=== PATIENT | male | born 1955 | race Caucasian/White ===

== ENCOUNTER → 2017-06-14 | Outpatient (REF) | payer OTHER ==
[2017-06-14 14:37] LABS: ALBUMIN 3.8 GM/DL (3.2-5.2); ALBUMIN/GLOBULIN RATIO 1.23 (1.00-1.93); ALKALINE PHOSPHATASE 55 U/L (45-117); ALT/SGPT 19 U/L (12-78); ANION GAP 6 MEQ/L (8-16); AST/SGOT 11 U/L (15-37); BILIRUBIN,TOTAL 0.3 MG/DL (0.2-1.0); BLOOD UREA NITROGEN 13 MG/DL (7-18); CARBON DIOXIDE LEVEL 28 MEQ/L (21-32); CHLORIDE LEVEL 108 MEQ/L (98-107); GLOMERULAR FILTRATION RATE > 60.0 (>49); GLUCOSE, FASTING 72 MG/DL (80-110); POTASSIUM SERUM 4.2 MEQ/L (3.5-5.1); SODIUM LEVEL 142 MEQ/L (136-145); TOTAL PROTEIN 6.9 GM/DL (6.4-8.2)
[2017-06-14 14:46] LABS: BASO % 0.6 % (0.0-1.0); EOS # 0.2 K/mm3 (0.0-0.50); EOS % 2.2 % (0.0-3.0); LARGE UNSTAINED CELL # 0.1 K/mm3 (0.0-0.4); LARGE UNSTAINED CELL % 1.7 % (0.0-4.0); LYMPH # 2.4 K/mm3 (1.5-4.5); MEAN CORPUSCULAR HEMOGLOBIN 32.1 pg (27.0-33.0); MEAN CORPUSCULAR HGB CONC 34.3 g/dl (32.0-36.5); MEAN CORPUSCULAR VOLUME 93.6 fl (80.0-96.0); MONO # 0.6 K/mm3 (0.0-0.8); MONO % 6.9 % (0.0-5.0); NEUTROPHILS # 5.2 K/mm3 (1.8-7.7); NEUTROPHILS % 61.6 % (36.0-66.0); PLATELET COUNT, AUTOMATED 288 k/mm3 (150-450); RED CELL DISTRIBUTION WIDTH 12.5 % (11.5-14.5); WHITE BLOOD COUNT 8.4 K/mm3 (4.0-10.0)
== END ==
LOC: M LABNEURO 13:47
PROVIDERS: ATTEND Psychiatry & Neurology Neurology
DX: G44.009 Cluster headache syndrome, unspecified, not intractable (principal)

== ENCOUNTER → 2018-01-17 | Outpatient (REF) | payer OTHER ==
[2018-01-17 14:17] LABS: BASO # 0.1 10^3/uL (0.0-0.2); BASO % 0.5 % (0.0-1.0); EOS # 0.4 10^3/uL (0.0-0.50); EOS % 3.8 % (0.0-3.0); HEMATOCRIT 40.8 % (42.0-52.0); HEMOGLOBIN 13.4 g/dl (14.0-18.0); IMMATURE GRANULOCYTE % 0.3 % (0-3.0); LYMPH # 2.2 10^3/uL (1.5-4.5); LYMPH % 22.6 % (24.0-44.0); MEAN CORPUSCULAR HGB CONC 32.8 g/dl (32.0-36.5); MEAN CORPUSCULAR VOLUME 94.4 fl (80.0-96.0); MONO % 9.9 % (0.0-5.0); NEUTROPHILS # 6.2 10^3/uL (1.8-7.7); NEUTROPHILS % 62.9 % (36.0-66.0); PLATELET COUNT, AUTOMATED 304 10^3/uL (150-450); RED BLOOD COUNT 4.32 10^6/uL (4.30-6.10); RED CELL DISTRIBUTION WIDTH 13.3 % (11.5-14.5); WHITE BLOOD COUNT 9.9 10^3/uL (4.0-10.0)
[2018-01-17 14:50] LABS: ALBUMIN 3.7 GM/DL (3.2-5.2); ALBUMIN/GLOBULIN RATIO 1.23 (1.00-1.93); ALKALINE PHOSPHATASE 59 U/L (45-117); ALT/SGPT 19 U/L (12-78); ANION GAP 6 MEQ/L (8-16); AST/SGOT 11 U/L (7-37); BILIRUBIN,TOTAL 0.2 MG/DL (0.2-1.0); BLOOD UREA NITROGEN 13 MG/DL (7-18); CALCIUM LEVEL 8.5 MG/DL (8.8-10.2); CARBON DIOXIDE LEVEL 30 MEQ/L (21-32); CHLORIDE LEVEL 106 MEQ/L (98-107); CREATININE FOR GFR 0.69 MG/DL (0.70-1.30); GLOMERULAR FILTRATION RATE > 60.0 (>49); GLUCOSE, FASTING 85 MG/DL (70-100); POTASSIUM SERUM 4.2 MEQ/L (3.5-5.1); SODIUM LEVEL 142 MEQ/L (136-145); TOTAL PROTEIN 6.7 GM/DL (6.4-8.2); VALPROIC ACID (DEPAKOTE) 37.4 UG/ML (50.0-100.0)
== END ==
LOC: M LABNEURO 12:55
DX: G44.009 Cluster headache syndrome, unspecified, not intractable (principal)
CPT/HCPCS: 80164

== ENCOUNTER → 2018-06-07 | Outpatient (CLI) | payer OTHER | LOC: M RAD 12:03 | DX: J32.0 Chronic maxillary sinusitis (principal) | CPT/HCPCS: 70486 ==

== ENCOUNTER 2018-09-11 06:20 | Day surgery (SDC) | payer OTHER ==
[2018-09-11] MEDS ORDERED: LR 1,000 ML IV ×3 (07:00→10:45)
[2018-09-11] MEDS ORDERED: fentaNYL 250 MCG/5 ML INJECTION (J3010) As Ordered (07:52)
[2018-09-11] MEDS ORDERED: MIDAZOLAM INJ 2 MG/2 ML VIAL (J2250) As Ordered (07:52)
[2018-09-11] MEDS ORDERED: LIDOCAINE 2% INJ 100 MG/5 ML SDV (FOR ANES.) As Ordered (07:52)
[2018-09-11] MEDS ORDERED: dexameTHASONE 4 MG/ML 1ML VIAL (J1100) As Ordered ×2 (07:52→08:57)
[2018-09-11] MEDS ORDERED: PROPOFOL 200 MG/20 ML VIAL As Ordered (07:52)
[2018-09-11] MEDS ORDERED: ROCURONIUM BROMIDE 50 MG/5 ML VIAL As Ordered (07:52)
[2018-09-11] MEDS ORDERED: PHENYLephrine HCL 500 MCG/5 ML (100MCG/ML) SYRINGE (J2370) As Ordered (07:53)
[2018-09-11] MEDS: dexameTHASONE 4 MG/ML 1ML VIAL (J1100) IV (08:00)
[2018-09-11] MEDS ORDERED: LABETALOL HCL 100 MG/20 ML VIAL As Ordered (08:52)
[2018-09-11] MEDS: EPINEPHrine 1MG/ML INJ 30ML MD-VIAL As Ordered ×2 (08:54)
[2018-09-11] MEDS: METHYLENE BLUE 0.5% (5MG/ML) 10 ML AMP (PROVAYBLUE)(Q9968 PER 1MG) As Ordered (08:55)
[2018-09-11] MEDS ORDERED: ePHEDrine SULFATE 25 MG/5 ML(5MG/ML) SYRINGE As Ordered (09:57)
[2018-09-11] MEDS: LIDOCAINE W/EPINEPHRINE 1% 20ML VIAL As Ordered (10:00)
[2018-09-11] MEDS ORDERED: ONDANSETRON 4MG/2ML VIAL (J2405) As Ordered (10:05)
[2018-09-11] MEDS ORDERED: SUGAMMADEX SODIUM 500 MG/5 ML VIAL (BRIDION) As Ordered (10:06)
[2018-09-11] MEDS: SODIUM CHLORIDE 0.9% NASAL GEL 15GM (AYR) As Ordered (10:29)
[2018-09-11] MEDS: NORCO, ANEXSIA 5/325MG TABLET (HYDROcodone/ACETAMINOPHEN) PO ×2 (10:45→11:15)
[2018-09-11] MEDS ORDERED: ONDANSETRON 4MG/2ML VIAL (J2405) IV (10:45)
[2018-09-11] MEDS: fentaNYL 100 MCG/2 ML INJECTION (J3010) IV ×4 (10:48→11:03)
[2018-09-11] MEDS: METOCLOPRAMIDE INJ 10MG/2ML VIAL (J2765) IV (11:50)
[2018-09-11] MEDS ORDERED: METOCLOPRAMIDE INJ 10MG/2ML VIAL (J2765) As Ordered (11:51)
== END 2018-09-11 13:30 | disposition home or self-care (01) ==
LOC: M SDC 06:20
DX: J31.0 Chronic rhinitis (principal); J32.9 Chronic sinusitis, unspecified; E78.5 Hyperlipidemia, unspecified; R23.3 Spontaneous ecchymoses; G44.009 Cluster headache syndrome, unspecified, not intractable; M12.9 Arthropathy, unspecified; G47.9 Sleep disorder, unspecified; R06.83 Snoring; Z79.899 Other long term (current) drug therapy; Z87.81 Personal history of (healed) traumatic fracture
CPT/HCPCS: 31255

== ENCOUNTER → 2019-01-27 | Outpatient (REF) | payer OTHER ==
[~2019-01-27] MED LIST: BUTACAP78 PO; DEPA250T32 PO; MULT1CHW26 PO; SIMV40TA2 PO; VIAG100T PO
[2019-01-27 12:40] LABS: BASO % 0.3 % (0.0-1.0); EOS # 0.4 10^3/uL (0.0-0.50); EOS % 3.4 % (0.0-3.0); HEMATOCRIT 42.4 % (42.0-52.0); HEMOGLOBIN 14.4 g/dl (13.5-17.5); LYMPH # 2.9 10^3/uL (1.5-4.5); LYMPH % 24.3 % (24.0-44.0); MEAN CORPUSCULAR HEMOGLOBIN 31.2 pg (27.0-33.0); MONO % 8.8 % (0.0-5.0); NEUTROPHILS # 7.4 10^3/uL (1.8-7.7); NEUTROPHILS % 62.9 % (36.0-66.0); PLATELET COUNT, AUTOMATED 313 10^3/uL (150-450); RED BLOOD COUNT 4.61 10^6/uL (4.30-6.10); WHITE BLOOD COUNT 11.8 10^3/uL (4.0-10.0)
[2019-01-27 13:36] LABS: ALT/SGPT 26 U/L (12-78); BILIRUBIN,TOTAL 0.4 MG/DL (0.2-1.0); BLOOD UREA NITROGEN 13 MG/DL (7-18); CALCIUM LEVEL 8.7 MG/DL (8.8-10.2); CARBON DIOXIDE LEVEL 26 MEQ/L (21-32); CHLORIDE LEVEL 107 MEQ/L (98-107); CREATININE FOR GFR 0.66 MG/DL (0.70-1.30); GLOMERULAR FILTRATION RATE > 60.0 (>49); GLUCOSE, FASTING 87 MG/DL (70-100); POTASSIUM SERUM 4.4 MEQ/L (3.5-5.1); SODIUM LEVEL 139 MEQ/L (136-145); TOTAL PROTEIN 7.2 GM/DL (6.4-8.2); VALPROIC ACID (DEPAKOTE) 35.2 UG/ML (50.0-100.0)
== END ==
LOC: M LABNEURO 10:50
PROVIDERS: ATTEND Psychiatry & Neurology Neurology
DX: G44.009 Cluster headache syndrome, unspecified, not intractable (principal)

== ENCOUNTER → 2019-02-05 | Outpatient (REF) | payer OTHER | LOC: M LAB REF 10:42 | PROVIDERS: ATTEND Otolaryngology | DX: K13.79 Other lesions of oral mucosa (principal) ==

== ENCOUNTER → 2019-06-27 | Outpatient (REF) | payer OTHER ==
[2019-06-27 12:20] LABS: ALBUMIN 4.4 GM/DL (3.2-5.2); ALT/SGPT 50 U/L (12-78); BILIRUBIN,TOTAL 0.2 MG/DL (0.2-1.0); BLOOD UREA NITROGEN 18 MG/DL (7-18); CARBON DIOXIDE LEVEL 26 MEQ/L (21-32); CHLORIDE LEVEL 105 MEQ/L (98-107); CHOLESTEROL LEVEL 173 MG/DL (<200); CHOLESTEROL RISK RATIO 4.219 (<5); CREATININE FOR GFR 0.73 MG/DL (0.70-1.30); GLOMERULAR FILTRATION RATE > 60.0 (>49); GLUCOSE, FASTING 105 MG/DL (70-100); HDL CHOLESTEROL 41 MG/DL (>40); LDL CHOLESTEROL 103 MG/DL (<100); NON-HDL-C 132 MG/DL; POTASSIUM SERUM 4.1 MEQ/L (3.5-5.1); SODIUM LEVEL 141 MEQ/L (136-145); TOTAL 25(OH) VITAMIN D 21.3 NG/ML (30.0-100.0); TOTAL PROTEIN 7.3 GM/DL (6.4-8.2); TRIGLYCERIDES LEVEL 144 MG/DL (<150)
== END ==
LOC: M LABDRAW1 07:59
PROVIDERS: ATTEND Nurse Practitioner Family
DX: E55.9 Vitamin D deficiency, unspecified (principal); E78.2 Mixed hyperlipidemia

== ENCOUNTER 2023-10-24 11:01 | Day surgery (SDC) | payer OTHER ==
[~2023-10-24] VITALS: Ht 175.3 cm; Wt 84.5 kg
[~2023-10-24 11:01] MED LIST changes: +LIDOCAINE 2% W/EPINEPHRINE 20ML VIAL **PRES FREE As Ordered ONE; +LIDOCAINE 3.5 % 1ML OPHTH TOPICAL GEL OU ONE; -SIMV40TA2 PO; +SIMV40TA20 PO; +TOBRADEX OPHTH OINT 3.5 GM As Ordered ONE
[2023-10-24] MEDS ORDERED: fentaNYL 100 MCG/2 ML INJECTION As Ordered ONE (14:33)
[2023-10-24] MEDS ORDERED: MIDAZOLAM INJ 2MG/2ML VIAL As Ordered ONE (14:33)
[2023-10-24] MEDS ORDERED: propofoL 200 MG/20 ML VIAL As Ordered ONE (14:33)
[2023-10-24] MEDS ORDERED: LIDOCAINE 2% 100MG/5ML SDV (FOR ANES.) As Ordered ONE (14:33)
[2023-10-24] MEDS ORDERED: POVIDONE-IODINE 5% OPHTH PREP SOL 30ML As Ordered ONE (15:48)
[2023-10-24] MEDS ORDERED: TOBRADEX OPHTH OINT 3.5 GM As Ordered ONE (16:00)
[2023-10-24 16:10] VITALS: BP 140/92; TEMP 97.9; O2SAT 95
== END 2023-10-24 16:47 | disposition home or self-care (01) ==
LOC: M SDC 11:01
PROVIDERS: ATTEND Ophthalmology
DX: H02.032 Senile entropion of right lower eyelid (principal); E78.00 Pure hypercholesterolemia, unspecified; R51.9 Headache, unspecified; Z87.891 Personal history of nicotine dependence; Z79.899 Other long term (current) drug therapy
CPT/HCPCS: 67921; J2250; J3010

== ENCOUNTER → 2024-12-10 | Outpatient (CLI) | payer OTHER ==
[~2024-12-10] MED LIST changes: +BARIUM SULFATE 700 MG TABLET (E-Z-DISK) As Ordered ONE; +E-Z-PAQUE 96% w/w SUSP 176GM BTL As Ordered ONE; -LIDOCAINE 2% W/EPINEPHRINE 20ML VIAL **PRES FREE As Ordered ONE; -LIDOCAINE 3.5 % 1ML OPHTH TOPICAL GEL OU ONE; -TOBRADEX OPHTH OINT 3.5 GM As Ordered ONE; +VARIBAR NECTAR 40% w/v 240ML SUSP BTL As Ordered ONE; +VARIBAR PUDDING 40% w/v 230ML TUBE As Ordered ONE
== END ==
LOC: M RAD 10:49
PROVIDERS: ATTEND Otolaryngology
DX: R47.02 Dysphasia (principal)

== ENCOUNTER → 2025-03-09 | Outpatient (CLI) | payer OTHER ==
[~2025-03-09] MED LIST changes: -BARIUM SULFATE 700 MG TABLET (E-Z-DISK) As Ordered ONE; -E-Z-PAQUE 96% w/w SUSP 176GM BTL As Ordered ONE; -VARIBAR NECTAR 40% w/v 240ML SUSP BTL As Ordered ONE; -VARIBAR PUDDING 40% w/v 230ML TUBE As Ordered ONE
[2025-03-09 10:30] LABS: BASO % 0.4 % (0.0-1.0); EOS # 0.1 10^3/uL (0.0-0.5); EOS % 1.5 % (0.0-3.0); HEMATOCRIT 43.6 % (42.0-52.0); HEMOGLOBIN 14.5 g/dl (13.5-17.5); LYMPH # 1.8 10^3/uL (1.5-5.0); LYMPH % 22.3 % (24.0-44.0); MEAN CORPUSCULAR HGB CONC 33.3 g/dl (32.0-36.5); MEAN CORPUSCULAR VOLUME 93.4 fl (80.0-96.0); MONO # 0.7 10^3/uL (0.0-0.8); MONO % 8.7 % (2.0-8.0); NEUTROPHILS # 5.4 10^3/uL (1.5-8.5); NEUTROPHILS % 66.9 % (36.0-66.0); PLATELET COUNT, AUTOMATED 284 10^3/uL (150-450); RED BLOOD COUNT 4.67 10^6/uL (4.30-6.10)
[2025-03-09 10:34] LABS: ERYTHROCYTE SEDIMENTATION RATE 14 mm/hr (0-20)
[2025-03-09 11:16] LABS: HEMOGLOBIN A1c 5.2 % (4.0-6.0)
[2025-03-09 11:17] LABS: ALBUMIN 3.7 G/DL (3.2-5.2); ALKALINE PHOSPHATASE 55 U/L (40-129); ALT/SGPT 17 U/L (7.0-40); AST/SGOT 13 U/L (<34); BILIRUBIN,TOTAL 0.3 MG/DL (0.3-1.2); BLOOD UREA NITROGEN 12 MG/DL (9-23); CALCIUM LEVEL 9.2 MG/DL (8.3-10.6); CARBON DIOXIDE LEVEL 31 MMOL/L (20-31); CHLORIDE LEVEL 105 MMOL/L (98-107); CHOLESTEROL LEVEL 145 MG/DL (<200); CHOLESTEROL RISK RATIO 4.11 (<5); CREATININE FOR GFR 0.52 MG/DL (0.70-1.30); GLOMERULAR FILTRATION RATE > 90.0 (>42); GLUCOSE, FASTING 96 MG/DL (74-106); HDL CHOLESTEROL 35.2 MG/DL (>40); LDL CHOLESTEROL 90.8 MG/DL (<100); NON-HDL-C 109.8 MG/DL; SODIUM LEVEL 144 MMOL/L (136-145); TOTAL PROTEIN 6.6 G/DL (5.7-8.2); TRIGLYCERIDES LEVEL 95 MG/DL (<150)
[2025-03-09 11:20] LABS: RHEUMATOID FACTOR QUANT < 3.5 IU/ML (<14)
[2025-03-09 11:21] LABS: THYROID STIMULATING HORMONE 0.502 uIU/ML (0.55-4.78)
[2025-03-09 11:22] LABS: FOLATE > 24.0 NG/ML (>5.4); TOTAL 25(OH) VITAMIN D 42.8 NG/ML (20.0-100.0)
[2025-03-09 11:23] LABS: FREE T4 1.26 NG/DL (0.89-1.76); VITAMIN B12 LEVEL 864 PG/ML (211-911)
[2025-03-10 14:12] LABS: ANA SCREEN, IFA NEGATIVE (NEGATIVE)
[2025-03-11 03:16] LABS: IgG P18 AB NON-REACTIVE; IgG P23 AB NON-REACTIVE; IgG P28 AB NON-REACTIVE; IgG P30 AB NON-REACTIVE; IgG P39 AB NON-REACTIVE; IgG P41 AB NON-REACTIVE; IgG P45 AB NON-REACTIVE; IgG P58 AB NON-REACTIVE; IgG P66 AB NON-REACTIVE; IgG P93 AB NON-REACTIVE; IgM P23 AB REACTIVE; IgM P39 AB REACTIVE; IgM P41 AB NON-REACTIVE; LYME IgG WB INTERPRETATION NEGATIVE (NEGATIVE); LYME IgM WB INTERPRETATION POSITIVE (NEGATIVE)
[2025-03-12 18:32] LABS: VITAMIN E(ALPHA TOCOPHEROL) 9.8 mg/L (5.7-19.9); VITAMIN E(GAMMA TOCOPHEROL) < 1.0 mg/L (<=4.3)
== END ==
LOC: M LAB 09:26
PROVIDERS: ATTEND Psychiatry & Neurology Neurology
DX: E07.9 Disorder of thyroid, unspecified (principal); E53.8 Deficiency of other specified B group vitamins; A69.20 Lyme disease, unspecified